=== PATIENT | male | born 1995 | race Caucasian/White ===

== ENCOUNTER 2018-03-03 08:47 | Emergency (ER) | payer MEDICAID, OTHER ==
[~2018-03-03] VITALS: Ht 185.4 cm; Wt 143.1 kg
[~2018-03-03 08:47] MED LIST: CITA20TA6 PO; QUET25TA5 PO; RISP3TAB24 PO; TOPI50TA35 PO; ZOLP10TA PO
[2018-03-03] MEDS ORDERED: KETOROLAC 30 MG/1 ML ONE (09:34)
[2018-03-03] MEDS ORDERED: KETOROLAC 30 MG/1 ML IM ONE (10:00)
[2018-03-03 10:21] VITALS: BP 134/77
== END 2018-03-03 10:27 | disposition home or self-care (01) ==
LOC: ED 10:21
DX: I10 Essential (primary) hypertension (principal); H65.02 Acute serous otitis media, left ear; Z88.0 Allergy status to penicillin; F32.9 Major depressive disorder, single episode, unspecified
CPT/HCPCS: 96372; 99283; J1885

== ENCOUNTER 2018-10-08 01:58 | Emergency (ER) | payer MEDICARE ==
[~2018-10-08] VITALS: Ht 188 cm; Wt 148.0 kg
[2018-10-08] MEDS ORDERED: ZIPRASIDONE 20 MG INJ IM ONE ×2 (02:08→02:30)
[2018-10-08 02:28] LABS: BASOPHILS # (AUTO) 0.05 x10^3/uL (0-0.1); BASOPHILS % (AUTO) 1 % (0-1); EOSINOPHILS # (AUTO) 0.11 x10^3/uL (0-0.4); EOSINOPHILS % (AUTO) 1 % (1-7); LYMPHOCYTES # (AUTO) 2.85 x10^3/uL (1-3.4); LYMPHOCYTES % (AUTO) 26 % (22-44); MD NO; MEAN CORPUSCULAR HGB CONC 32.4 g/dL (33.2-36.2); MEAN CORPUSCULAR VOLUME 89.5 fL (81-97); MEAN PLATELET VOLUME 7.4 fL (7.4-10.4); MONOCYTES % (AUTO) 5 % (2-9); NEUTROPHILS # (AUTO) 7.29 x10^3/uL (1.8-6.8); NEUTROPHILS % (AUTO) 68 % (42-75); PLATELET COUNT 442 x10^3/uL (130-400); RED BLOOD COUNT 5.32 x10^6/uL (4.38-5.82); RED CELL DISTRIBUTION WIDTH 12.8 % (9.4-14.8)
[2018-10-08 02:30] LABS: ALANINE AMINOTRANSFERASE 42 U/L (12-78); ALBUMIN 4.2 g/dL (3.4-5.0); ANION GAP 12 mmol/L (5-15); CALCIUM 9.4 mg/dL (8.5-10.1); CHLORIDE 101 mmol/L (98-107); CREATININE 0.89 mg/dL (0.7-1.3)
[2018-10-08 02:32] LABS: ALKALINE PHOSPHATASE 83 U/L (45-117); BILIRUBIN,TOTAL 0.4 mg/dL (0.2-1.0); TOTAL PROTEIN 8.6 g/dL (6.4-8.2)
[2018-10-08 02:48] LABS: ACETAMINOPHEN < 2 mcg/mL (10-30); SALICYLATE LEVEL < 1.7 mg/dL (2.8-20.0)
--- NOTE | 2018-10-08 02:59 | NUR ---
URINE AND BLOOD TO LAB PT MEDICATED ORDERED AND AWAITING TEST RESULTS.
[2018-10-08 03:00] LABS: AMPHETAMINE SCREEN, URINE Negative (Negative); BARBITURATE SCREEN, URINE Negative (Negative); BENZODIAZEPINE SCREEN, URINE Negative (Negative); CANNABINOID SCREEN, URINE Negative (Negative); COCAINE SCREEN, URINE Negative (Negative); METHADONE SCREEN, URINE Negative (Negative); OPIATE SCREEN, URINE Negative (Negative)
[2018-10-08 03:30] VITALS: BP 128/74
== END 2018-10-08 03:32 | disposition home or self-care (01) ==
LOC: ED 02:35
DX: F41.1 Generalized anxiety disorder (principal); F32.0 Major depressive disorder, single episode, mild; I10 Essential (primary) hypertension
CPT/HCPCS: 36415; 80053; 80307; 85025; 96372; 99284; J3486